=== PATIENT | male | born 1960 | race Caucasian/White ===

== ENCOUNTER → 2016-07-19 | Outpatient (CLI) | payer OTHER ==
--- NOTE | 2016-07-19 12:13 | DIAGNOSTIC IMAGING REPORT ---
CHEST 2 VIEWS ROUTINE CLINICAL HISTORY: Cough, shortness of breath. COMPARISON STUDY: No previous studies for comparison. FINDINGS: The cardiac and mediastinal contours are normal. There is no evidence of focal pulmonary consolidation. There is no evidence of failure. No pleural effusions are visualized.[ IMPRESSION: No active disease in the chest. Electronically signed by: Genaro Barlow M.D. 07/19/2016 12:11 PM Dictated Date/Time: 07/19/2016 12:11 PM
== END | disposition home or self-care (01) ==
LOC: C.RADBBURG 19:28
PROVIDERS: ATTEND Internal Medicine Pulmonary Disease
DX: R06.02 Shortness of breath (principal); R05 Cough

== ENCOUNTER → 2016-10-10 | Outpatient (CLI) | payer OTHER ==
[~2016-10-10] MED LIST: FLUO40CA8 PO; FLUT1INH7 INH; GLUCTAB7 PO; VNTHFA/IN INH
--- NOTE | 2016-10-10 11:24 | DIAGNOSTIC IMAGING REPORT ---
CHEST CT WITHOUT CONTRAST CT DOSE: 652.63 mGycm HISTORY: Follow-up pulmonary nodule. TECHNIQUE: Multiaxial CT images of the chest were performed without contrast. COMPARISON: Chest CT 04/28/2016. FINDINGS: The central airways are patent. No pleural effusions. No pneumothorax. Punctate 2 mm calcified granuloma within the right lung apex is considered to be benign. Stable 4 mm pulmonary nodule within the left lower lobe on image 222. Stable 2 mm left lower lobe pulmonary nodule on image 183. Stable 4 mm pulmonary nodule in the right lower lobe on image 172. Stable 5 mm right upper lobe pulmonary nodule on image 113. No new pulmonary nodules identified. No mediastinal or hilar lymphadenopathy. The heart is normal in size. The visualized unenhanced spleen and adrenal glands are unremarkable. Normal caliber thoracic aorta. Stable 1 cm hypodense lesion within the left hepatic lobe. This is incompletely characterized on this noncontrast study. IMPRESSION: Multiple stable subcentimeter bilateral pulmonary nodules with the largest in the right upper lobe measuring 5 mm. Please refer to the chart below for recommended follow-up. Of note, the Fleischner criteria has changed in 2017 as detailed below. Please refer to below summary of Fleischner criteria recommendations for follow-up of incidental CT nodules (Lorena Faye, Guidelines for management of small pulmonary nodules detected on CT scans: A statement from the Fleischner Society, Radiology 237: [phone].) SOLID NODULES Solitary nodule size: <6 mm * low risk patients: no follow-up needed * high risk patients: optional CT at 12 months Solitary nodule size: 6-8 mm * low risk patients: follow-up at 6-12 months, then consider further follow-up at 18-24 months * high risk patients: initial follow-up CT at 6-12 months and then at 18-24 months if no change Solitary nodule size: >8 mm * either low or high risk patients - consider follow-up CT at 3 months, and/or CT-PET, and/or biopsy Multiple nodules size: <6 mm * low risk patients: no routine follow-up * high risk patients: optional CT at 12 months Multiple nodules size: 6-8 mm * low risk patients: follow-up at 3-6 months, then consider further follow-up at 18-24 months * high risk patients: follow-up at 3-6 months, then at 18-24 months if no change Multiple nodules size: >8 mm * low risk patients: follow-up at 3-6 months, then consider further follow-up at 18-24 months * high risk patients: follow-up at 3-6 months, then at 18-24 months if no change Note: newly detected indeterminate nodule in persons 35 years of age or older. * low risk patients: minimal or absent history of smoking and/or other known risk factors * high risk patients: history of smoking or of other known risk factors (e.g. first degree relative with lung cancer, or exposure to asbestos, radon, uranium) * if a nodule up to 8 mm is partly solid or is ground glass further follow-up is required after 24 months to exclude possible slow growing adenocarcinoma (TRINIDAD) SUBSOLID NODULES Solitary pure ground-glass nodule * nodule size <6 mm - no CT follow-up required * nodule size >=6 mm - follow-up CT at 6-12 months, then every 2 years until 5 years Solitary part-solid nodule * nodule size <6 mm - no CT follow-up required * nodule size >=6 mm - follow-up CT at 3-6 months. If unchanged, and solid component remains <6 mm, then annual follow-up for 5 years Multiple subsolid nodules * nodule size <6 mm - follow-up CT at 3-6 months, consider further follow-up at 2 and 4 years if stable * nodule size >=6 mm - follow-up CT at 3-6 months, subsequent management based on the most suspicious nodule(s) Electronically signed by: Benedict Lopes M.D. 10/10/2016 11:22 AM Dictated Date/Time: 10/10/2016 11:13 AM
== END | disposition home or self-care (01) ==
LOC: C.CTS 10:25
PROVIDERS: ATTEND Physician Assistant
DX: R91.1 Solitary pulmonary nodule (principal); R91.8 Other nonspecific abnormal finding of lung field

== ENCOUNTER → 2017-06-09 | Day surgery (SDC) | payer OTHER ==
[2017-06-05 10:30] VITALS: Ht 185.4 cm; Wt 113.6 kg
[~2017-06-09] VITALS: Ht 185.4 cm; Wt 113.6 kg
[~2017-06-09] MED LIST changes: +ALBUTEROL HFA INHALER 8.5 GM INH ONE; +ATROPINE SULFATE 0.1 MG/ML 5ML SYR IV PRN; +CEFAZOLIN 2000MG IV PUSH 10 ML IV SCH; +DEXAMETHASONE SOD INJ 4 MG/ML VIAL ONE; +EpHEDrine SULFATE INJ 50 MG/ML AMP IV PRN; +EpHEDrine SULFATE INJ 50 MG/ML AMP ONE; +EpINEphrine INJ 1MG/ML AMP 1 MG/ML AMP ONE; +FENTANYL CITRATE INJ 50 MCG/1 ML 2 ML VIAL IV PRN; +FENTANYL CITRATE INJ 50 MCG/1 ML 2 ML VIAL ONE; +HYDROCODONE/ACETAMOPHEN 5/325MG TAB PO PRN; +HYDROmorphone INJ 1 MG/ML SYR IV PRN; +LACTATED RINGER'S 1000ML 1,000 ML IV SCH; +LIDOCAINE 4% MPF SOAK 5 ML = 1 DOSE TOP ONE; +LIDOCAINE HCL 2% 2 ML VIAL (20MG/ML) ONE; +LIDOCAINE/EPINEPHRINE 1% INJ 50 ML VIAL ONE; +MIDAZOLAM HCL 1 MG/ML 2ML VIAL ONE; +NEOSTIGMINE METHYLSULFATE 5 MG/5 ML SYR ONE; +ONDANSETRON INJ 2 MG/ML 2 ML VIAL IV PRN; +ONDANSETRON INJ 2 MG/ML 2 ML VIAL ONE; +OXYMETAZOLINE HCL 0.05% NA SPR 15 ML BTL PRN; +OXYMETAZOLINE HCL 0.05% NA SPR 15 ML BTL SCH; +PROPOFOL IV EMULSION 10 MG/ML 20 ML VIAL IV ONE
--- NOTE | 2017-06-09 09:52 | History & Physical Bridge - [place] ---
H&P Re-Evaluation Bridge Note: I have examined the patient, reviewed the History & Physical and in the interval since the performance of the History & Physical I have noted the following changes of clinical significance: No changes noted
--- NOTE | 2017-06-09 11:13 | [facility] Operative Report ---
Operative Report Operative Date Jun 09, 2017. Pre-Operative Diagnosis Nasal Septal Deviation, Hypertrophy of Bilateral Inferior Turbinates Post-Operative Diagnosis Same Procedure(s) Performed Septoplasty And Bilateral Inferior Turbinate Reduction Surgeon Dr. Aldana Supervisor Curing Room Surgeon(s) None Estimated Blood Loss 25ML Findings SEVERE R>L DNS, L>R ITH Specimens None I attest to the content of the Intraoperative Record and any orders documented therein. Any exceptions are noted below.
--- NOTE | 2017-06-09 11:15 | Discharge Instructions ---
Discharge Instructions Date of Service Jun 09, 2017. Admission Reason for Admission: Nasal Septal Deviation, Hypertrophy Of Both Inferi Discharge Discharge Diagnosis / Problem: SAME Discharge Goals Goal(s): Therapeutic intervention Activity Recommendations Activity Limitations: as noted below 1. LIGHT ACTIVITY FOR 2 WEEKS 2. NO NOSE BLOWING FOR 2 WEEKS 3. NO DRIVING WHILE ON [place]CO . Current Hospital Diet Patient's current hospital diet: Discharge Diet Recommended Diet: Regular Diet Procedures Procedures Performed: Septoplasty And Bilateral Inferior Turbinate Reduction Pending Studies Studies pending at discharge: no Medical Emergencies . Who to Call and When: Medical Emergencies: If at any time you feel your situation is an emergency, please call 911 immediately. . Non-Emergent Contact Non-Emergency issues call your: Surgeon . . "Provider Documentation" section prepared by Demarcus Aldana. . VTE Core Measure Inpt VTE Proph given/why not?: SCD's
--- NOTE | 2017-06-09 11:32 | OPERATIVE REPORT ---
DATE OF OPERATION: 06/09/2017 PREOPERATIVE DIAGNOSES: 1. Right greater than left, septal deviation. 2. Left greater than right inferior turbinate hypertrophy. POSTOPERATIVE DIAGNOSES: Same. PROCEDURES: 1. Septoplasty. 2. Bilateral inferior turbinate outfracture and turbinoplasty. SURGEON: Demarcus Aldana MD. ANESTHESIA: General endotracheal. ESTIMATED BLOOD LOSS: 25 mL. FINDINGS: 1. Severe right greater than left, septal deviation. 2. Severe left greater than right inferior turbinate hypertrophy. SPECIMENS: None. COMPLICATIONS: None. INDICATIONS FOR THE PROCEDURE: The patient is a 57-year-old male with a history of right greater than left nasal airway obstruction which has been refractory to maximum medical therapy including allergy treatment and nasal sprays. He presents for the above-mentioned procedure on an outpatient elective basis. DESCRIPTION OF PROCEDURE: After informed consent had been obtained from the patient, the patient was wheeled to the operating room and placed on the operating table in the supine position. Monitors were placed. After induction of general endotracheal anesthesia, patient was prepped in usual fashion for septoplasty. Lidocaine and epinephrine pledgets were placed in the bilateral nasal cavities and pressure applied. Curved iris scissors were used to trim the patient's nasal vibrissae. 1% lidocaine with 1:100,000 epinephrine was used to inject the nasal septum bilaterally, thereby performing hydrodissection of the mucoperichondrial mucoperiosteal flaps. Lidocaine and epinephrine pledgets were then replaced and pressure applied. The pledgets were then removed. A #15 scalpel was used to make a left hemitransfixion incision through which the left sided mucoperichondrial mucoperiosteal flap was elevated. A #15 scalpel was then used to incise the quadrangular cartilage with care to preserve a 1.5 cm dorsal and caudal strut and the right-sided mucoperichondrial mucoperiosteal flap was elevated through this cartilaginous incision. A Reyes swivel knife was then used to remove the deviated portion of the quadrangular cartilage which was impinging on the nasal airway to the right hand side. Septal bone was then removed using Anthony forceps and a James forceps which was impinging on the airway both to the right and the left posteriorly. The septal cavity was then suctioned. The septum was found to be midline. The left hemitransfixion incision was closed with several simple interrupted 4-0 chromic sutures. A 4-0 plain gut suture on a Roby needle was then used to perform a quilting stitch of the mucoperichondrial mucoperiosteal flaps bilaterally to help prevent septal hematoma. A Ling elevator was then used to infracture and subsequently outfracture the inferior turbinates bilaterally. 1% lidocaine with 1:100,000 epinephrine was used to inject the inferior turbinates bilaterally. A 2.0 mm turbinate blade using powered instrumentation was then used to perform bilateral inferior turbinoplasties in the submucosal fashion. The nasal cavity and nasopharynx were then suctioned. An orogastric tube was placed and the stomach was suctioned free of air and stomach contents. This marked the end of the case. The patient tolerated the procedure well. There were no apparent complications. The patient was extubated and transferred to recovery room in stable condition. I attest to the content of the Intraoperative Record and any orders documented therein. Any exception s are noted below.
--- NOTE | 2017-06-09 12:20 | Anesthesia Progress Nt - [facility] ---
Anesthesia Post Op Note Date & Time Jun 09, 2017 at 12:19 Vital Signs Pain Intensity: 0 Vital Signs Past 12 Hours Date Time Temp Pulse Resp B/P (MAP) Pulse Ox O2 Delivery O2 Flow Rate FiO2 06/09/17 11:53 36.7 76 16 110/71 (84) 96 Room Air 06/09/17 11:46 75 12 94 06/09/17 11:46 76 12 06/09/17 11:45 118/80 06/09/17 11:45 26.2 78 16 118/80 97 06/09/17 11:41 80 14 06/09/17 11:41 79 14 97 06/09/17 11:40 139/81 06/09/17 11:36 82 14 06/09/17 11:36 82 14 99 06/09/17 11:35 85 14 06/09/17 11:35 86 14 147/74 100 06/09/17 11:35 86 14 147/74 100 06/09/17 11:35 85 14 06/09/17 11:33 36.5 98 16 164/86 98 Room Air 06/09/17 11:31 146/73 06/09/17 11:31 146/73 06/09/17 11:30 92 22 06/09/17 11:30 92 22 06/09/17 11:30 92 22 99 06/09/17 11:30 92 22 99 06/09/17 11:26 164/86 06/09/17 11:26 164/86 06/09/17 09:20 36.6 66 22 136/83 (100) 92 Room Air Notes Mental Status: alert / awake / arousable, participated in evaluation Pt Amnestic to Procedure: Yes Nausea / Vomiting: adequately controlled Pain: adequately controlled Airway Patency, RR, SpO2: stable & adequate BP & HR: stable & adequate Hydration State: stable & adequate Anesthetic Complications: no major complications apparent
[2017-06-09 12:32] VITALS: BP 112/73; PULSE 75; O2SAT 95
== END | disposition home or self-care (01) ==
LOC: X.SURG 09:06
DX: J34.2 Deviated nasal septum (principal); J34.3 Hypertrophy of nasal turbinates; F41.9 Anxiety disorder, unspecified; F32.9 Major depressive disorder, single episode, unspecified; J45.909 Unspecified asthma, uncomplicated; E78.5 Hyperlipidemia, unspecified; G47.33 Obstructive sleep apnea (adult) (pediatric); Z83.3 Family history of diabetes mellitus; Z82.69 Family history of other diseases of the musculoskeletal system and connective tissue; Z80.43 Family history of malignant neoplasm of testis; Z83.79 Family history of other diseases of the digestive system; Z98.52 Vasectomy status; Z77.22 Contact with and (suspected) exposure to environmental tobacco smoke (acute) (chronic); E66.01 Morbid (severe) obesity due to excess calories; K21.9 Gastro-esophageal reflux disease without esophagitis; E66.9 Obesity, unspecified